=== PATIENT | female | born 1985 ===

== ENCOUNTER 2023-03-07 13:25 | Outpatient (OUT) | payer OTHER, SELFPAY ==
--- NOTE | 2023-03-07 | XR_ITS ---
[facility] [place] [id number] Patient Name: CRISTO WILL MRN: [id number] date: 1985 Sex: F Assigned Patient Location: [facility] Current Patient Location: RAD Accession/Order Number: [id number] Exam Date: 03/07/2023 10:25 Report Date: 03/07/2023 11:53 At the request of: TIBURCIO KILGORE Procedure: XR ankle LT min 3V PROCEDURE: XR ankle LT min 3V DATE: 03/07/2023 9:25 AM CDT COMPARISONS: 03/05/2023 CLINICAL INDICATION: LEFT ANKLE PAIN FINDINGS: There is some irregular density along the lateral aspect of the os calcis on the frontal view of the ankle. It is similar to previous exam. It could represent avulsion fracture of the lateral os calcis. There does appear to be some soft tissue swelling in this area increasing the likelihood that this represents acute minimally distracted irregular of avulsion. No other osseous abnormalities identified. The ankle mortise is intact. The talus, distal fibula and distal tibia appear intact on these images.. XR/XR ankle LT min 3V IMPRESSION: Possible irregular minimally distracted avulsion fracture of the lateral os calcis, stable from 03/05/2023 .. Electronically authenticated by: MICHELE BARAJAS Date: 03/07/2023 11:53
--- NOTE | 2023-03-07 | XR_ITS ---
[facility] [place] [id number] Patient Name: CRISTO WILL MRN: [id number] date: 1985 Sex: F Assigned Patient Location: [facility] Current Patient Location: [facility] Accession/Order Number: [id number] Exam Date: 03/07/2023 10:25 Report Date: 03/07/2023 11:51 At the request of: TIBURCIO KILGORE Procedure: XR foot LT min 3V PROCEDURE: XR foot LT min 3V DATE: 03/07/2023 9:25 AM CDT COMPARISONS: 03/05/2023 CLINICAL INDICATION: LEFT FOOT PAIN FINDINGS: There is no evidence of fractures or other osseous abnormalities. XR/XR foot LT min 3V IMPRESSION: Left foot radiographs show no evidence of abnormalities. Electronically authenticated by: MICHELE BARAJAS Date: 03/07/2023 11:51
== END 2023-03-07 13:26 | disposition home or self-care (01) ==
LOC: RAD 13:25
PROVIDERS: Visit Provider Podiatrist Foot & Ankle Surgery
DX: M25.572 Pain in left ankle and joints of left foot (principal)
CPT/HCPCS: 73610; 73630

== ENCOUNTER 2023-04-17 10:35 | Outpatient (OUT) | payer OTHER, SELFPAY ==
--- NOTE | 2023-04-17 | XR_ITS ---
[facility] [place] [id number] Patient Name: CRISTO WILL MRN: [id number] date: 1985 Sex: F Assigned Patient Location: [facility] Current Patient Location: [facility] Accession/Order Number: [id number] Exam Date: 04/17/2023 10:00 Report Date: 04/17/2023 11:41 At the request of: TIBURCIO KILGORE Procedure: XR ankle LT min 3V STUDY: XR ankle LT min 3V, [id number] HISTORY: LEFT ANKLE PAIN COMPARISON: Left ankle x-rays 03/07/2023 and MRI of the left apical 03/14/2023. FINDINGS/IMPRESSION: Anterolateral calcaneal avulsion fracture is not well seen on this exam and likely obscured by overlying osseous structures. Contusion of the talus is better seen on the recent MRI. No new or worsening osseous abnormality demonstrated. No lucent lesion of the talar dome. No significant joint degenerative changes. Electronically authenticated by: FRANCISCO CASEY Date: 04/17/2023 11:41
== END 2023-04-17 10:36 | disposition home or self-care (01) ==
LOC: RAD 10:35
PROVIDERS: Visit Provider Podiatrist Foot & Ankle Surgery
DX: M25.572 Pain in left ankle and joints of left foot (principal)
CPT/HCPCS: 73610